=== PATIENT | male | born 1960 | race Caucasian/White ===

== ENCOUNTER 2017-04-10 15:11 | Emergency (ER) | payer OTHER ==
[2017-04-10 15:27] VITALS: RESP 17; TEMP 98.2
--- NOTE | 2017-04-10 16:35 | EDPHY ---
H & P Time Seen by Provider: 04/10/17 15:34 HPI/ROS: CHIEF COMPLAINT: Left leg pain HISTORY OF PRESENT ILLNESS: The patient is a 49-year-old male who presents to the emergency department with left knee pain. Patient was hiking with his leg became caught. He tripped forward. He felt a pop above his left knee. He has been unable to ambulate since that time. He has notable pain with movement above his left knee. No other injury during the fall. No numbness or tingling. REVIEW OF SYSTEMS: My complete review of systems is negative except as mentioned in the HPI. Past Medical/Surgical History: Hypertension Past surgical history: Noncontributory Smoking Status: Never smoked Physical Exam: Vitals noted General Appearance: Alert and no distress. Head: Pupils equal. Normal. Respiratory: No respiratory distress. Cardiac: regular rate and rhythm. Extremities: patient has tenderness palpation above his left knee. There is no patellar deformity or swelling. There is notable step-off at the quadriceps tendon. Patient is unable to elevate his left lower extremity or engage his quadriceps. Patient is neurovascularly intact distally. Skin: No rashes or lesions. Neuro: Alert. Normal mood and affect. Constitutional: Initial Vital Signs Temperature (C) 36.8 C 04/10/17 15:25 Heart Rate 67 04/10/17 15:25 Respiratory Rate 17 04/10/17 15:25 Blood Pressure 166/98 H 04/10/17 15:25 O2 Sat (%) 97 04/10/17 15:25 O2 Delivery Mode Room Air Allergies/Adverse Reactions: aspirin Allergy (Verified 04/10/17 15:24) Home Medications: Medication Instructions Recorded Lisinopril 04/10/17 oxyCODONE/APAP 5/325 [Percocet 1 - 2 tab PO Q4PRN PRN #11 tab 04/10/17 5/325 (*)] Medical Decision Making ED Course/Re-evaluation: In the emergency department I discussed possible etiologies with the patient. I answered all his questions. Left knee x-ray: Please refer the dictated report. No acute disease. I discussed the case with Dr. Cherry from Orthopedic surgery. He recommends patient be placed in a knee immobilizer and given crutches. He is to be nonweightbearing. He does not recommend other imaging from the emergency department. The patient was placed in a knee immobilizer and given instructions on crutches. Neurovascularly intact distally post splint placement para I discussed the plan with the patient. He was given warnings prior to leaving. Differential Diagnosis: My differential includes but is not limited to patellar tender disruption, quadriceps tendon disruption, quadriceps tear, patellar fracture, knee fracture , dislocation, neurovascular injury Departure - Departure Disposition: Home, Routine, Self-Care Clinical Impression: Quadriceps tendon rupture Qualifiers: Encounter type: initial encounter Laterality: left Qualified Code(s): S76.112A - Strain of left quadriceps muscle, fascia and tendon, initial encounter Condition: Good Instructions: Knee Immobilizer (ED), Knee Pain (ED) Additional Instructions: You likely disrupted your quadriceps tendon. Keep your knee immobilizer in place. Use your crutches. You should be nonweightbearing. You need close follow-up with Dr. Cherry from Orthopedic surgery. Referrals: SHARI ALLEN [Other] - As per Instructions Andrew Cherry MD [Medical Doctor] - 5-7 days, call for appt. Prescriptions: oxyCODONE/APAP 5/325 [Percocet 5/325 (*)] 1 - 2 tab PO Q4PRN PRN #11 tab PRN Reason: For Moderate To Severe Pain
[2017-04-10 17:11] VITALS: BP 126/74; PULSE 78; O2SAT 94
== END 2017-04-10 17:10 | disposition home or self-care (01) ==
LOC: EDBD 15:11
DX: S76.112A Strain of left quadriceps muscle, fascia and tendon, initial encounter (principal); W18.49XA Other slipping, tripping and stumbling without falling, initial encounter; Y99.8 Other external cause status; Y93.01 Activity, walking, marching and hiking; I10 Essential (primary) hypertension
CPT/HCPCS: L1830